=== PATIENT | male | born 1980 | race Caucasian/White ===

== ENCOUNTER 2021-11-23 14:02 | Emergency (ER) | payer MEDICAID ==
[~2021-11-23] VITALS: Ht 175.3 cm; Wt 108.2 kg
--- NOTE | 2021-11-23 15:36 | PHYS DOC ---
Past History Past Surgical History: Other Additional Past Surgical Histo: nasal surgery Alcohol Use: None Adult General Chief Complaint Chief Complaint: BACK PAIN OR INJURY HPI HPI Patient is a 41-year-old male presents to the emergency department complaining of a sciatica flareup that started yesterday when he woke up. Patient reports burning sensation that starts on the left side of his low back and radiates down through his buttocks to the upper part of the backside of his left leg. Patient denies any numbness or tingling down his extremities, denies injury to his back, denies recent injuries, reports this is atypical presentation of his sciatica flareups. Patient reports 10 out of 10 pain. Denies difficulty walking, does report it is difficult to stand from a seated position because of his back spasm, patient denies a history of IV drug use, immunosuppression, cancers, recent fever or chills, denies numbness or tingling to his buttocks or genitals, denies loss of bowel or bladder control, denies urinary retention. Patient denies other physical complaints or physical concerns. Review of Systems Review of Systems 14 body systems of review of systems have been reviewed. See HPI for pertinent positives and negative responses, otherwise all other systems are negative, nonpertinent or noncontributory. Constitutional: Negative except as outlined in HPI above. Skin: Negative except as outlined in HPI above. Eyes: Negative except as outlined in HPI above. HENT: Negative except as outlined in HPI above. Respiratory: Negative except as outlined in HPI above. Cardiovascular: Negative except as outlined in HPI above. GI: Negative except as outlined in HPI above. : Negative except as outlined in HPI above. Musculoskeletal: Negative except as outlined in HPI above. Integument: Negative except as outlined in HPI above. Neurologic: Negative except as outlined in HPI above. Endocrine: Negative except as outlined in HPI above. Lymphatic: Negative except as outlined in HPI above. Psychiatric: Negative except as outlined in HPI above. Physical Exam Physical Exam Constitutional: Well developed, well nourished, no acute distress, non-toxic appearance. 41-year-old male appears uncomfortable otherwise in no apparent distress. HENT: Normocephalic, atraumatic. Eyes: Conjunctiva normal, no discharge. Neck: Normal range of motion, no stridor. Cardiovascular: No cyanosis appreciated, distal cap refill less than 2 seconds. Lungs & Thorax: Patient is in no respiratory distress, no audible adventitious lung sounds appreciated. Abdomen: Nontender, no abnormalities noted. Skin: Warm, dry, no erythema, no rash. Back: No midline spinal tenderness, no ecchymosis or bruising appreciated, no swelling or crepitus appreciated, no left-sided or right-sided CVA TTP, pain to palpation along left lower lumbar muscular structures radiating to buttocks. Distal cap refill less than 2 seconds, intact 5/5 motor strength with hip flexion, knee flexion,extension, knee adduction, plantar/dorsiflexion at the ankle, and dorsiflexion of the toe bilaterally. Extremities: No tenderness, no cyanosis, no clubbing, ROM intact, no edema. Neurologic: Alert and oriented X 3, normal motor function, normal sensory function, no focal deficits noted. Psychologic: Affect normal, judgement normal, mood normal. Current Patient Data Vital Signs Vital Signs Date Time Temp Pulse Resp B/P (MAP) Pulse Ox O2 Delivery O2 Flow Rate FiO2 11/23/21 15:25 97.7 68 16 118/69 (85) 97 Room Air EKG EKG [] Radiology/Procedures Radiology/Procedures [] Heart Score C/O Chest Pain: No Risk Factors: Risk Factors: DM, Current or recent (<one month) smoker, HTN, HLP, family history of CAD, obesity. Risk Scores: Risk Factors: DM, Current or recent (<one month) smoker, HTN, HLP, family history of CAD, obesity. Course & Med Decision Making Course & Med Decision Making Pertinent Labs and Imaging studies reviewed. (See chart for details) 41-year-old male, vital signs reviewed, presents emerged from concerning sciatica flareup symptoms that started yesterday morning when he woke up. Physical examination is consistent with sciatica flareup. There is no saddle anesthesia, immunosuppression, cancer, fever or chills, history of IV drug use, bowel/bladder incontinence/retention, physical exam concerning signs or trauma that would necessitate emergent imaging. Discussed with patient will treat with IM steroid injection, pain medications, will prescribe medications for home, strict follow-up with primary care, return ER precautions and concerns were reviewed with patient, patient gave verbal understanding of and is amenable to ED discharge planning. Discussed with the patient all findings and diagnostic testing as well as the need to follow-up with their primary care provider for further evaluation and treatment or return to the ED if any new or worsening symptoms. Strict return precautions were also discussed at length, the patient voiced understanding and agreement with the discharge planning. The patient was nontoxic in appearance, in no apparent distress, and hemodynamically stable at the time of disposition. Dragon Disclaimer Dragon Disclaimer This electronic medical record was generated, in whole or in part, using a voice recognition dictation system. Departure Departure: Impression: Primary Impression: Low back pain Disposition: HOME / SELF CARE / HOMELESS Condition: GOOD Referrals: PCP,NO (PCP) Patient Instructions: Sciatica Additional Instructions: You are seen today in the emergency department for a sciatica flareup. You are treated today in the emergency department with pain medications and a intramuscular injection of steroid. I have prescribed a short regimen of steroids, and pain medications, please take as directed. He had indicated you have recently [place] here [place] of [place] and do not have a primary care provider, please consider using the [facility] located at [address] [place] [address] [place] [address], their telephone number is area code [phone]. Please call tomorrow for the soonest appointment for reevaluation and ongoing management of your healthcare needs. Thank you for visiting our Emergency Department. It was a pleasure taking care of you today in the emergency department and we appreciate you trusting us with your care. If any additional problems come up don't hesitate to return to visit us. Please follow up with your primary care provider so they can plan additional care if needed and know about the problem that you had. If symptoms worsen come back to the Emergency Department. Any concerning symptoms that start such as chest pain, shortness of air, weakness or numbness on one side of the body, running high fevers or any other concerning symptoms return to the ER. Scripts Ibuprofen (IBUPROFEN) 600 Mg Tablet 600 MG PO PRN Q6-8HRS PRN for PAIN, #30 TAB 0 Refills Prov: LISA MAX APRN 11/23/21 Prednisone (PREDNISONE) 20 Mg Tablet 2 TAB PO DAILY for allergies for 5 Days, #10 TAB 0 Refills Take 2 tablets by mouth daily for the next 5 days. Prov: LISA MAX APRN 11/23/21 Problem Qualifiers Primary Impression: Low back pain Chronicity: acute Back pain laterality: left Sciatica presence: with sciatica Sciatica laterality: sciatica of left side Qualified Codes: M54.42 - Lumbago with sciatica, left side LISA MAX APRN Nov 23, 2021 15:36
[2021-11-23] MEDS ORDERED: PRED20TA PO (16:17)
[2021-11-23] MEDS ORDERED: IBUP600T16 PO (16:17)
[2021-11-23] MEDS ORDERED: IBUPROFEN 600 MG TABLET. PO ONE (16:30)
[2021-11-23] MEDS ORDERED: HYDROcodone/APAP 5/325MG 1 TAB TABLET PO ONE (16:30)
[2021-11-23] MEDS ORDERED: methylPREDNISolone ACETATE 40 MG/ML VIAL. IM ONE (16:30)
[2021-11-23] MEDS ORDERED: HYDROcodone/APAP 5/325MG 1 TAB TABLET ONE (16:45)
[2021-11-23 17:05] VITALS: BP 114/70
== END 2021-11-23 17:07 | disposition home or self-care (01) ==
LOC: ER 14:02
DX: M54.42 Lumbago with sciatica, left side (principal)
CPT/HCPCS: 96372; 99283; J1030

== ENCOUNTER 2021-12-03 11:21 | Emergency (ER) | payer MEDICAID ==
[~2021-12-03] VITALS: Ht 157.5 cm; Wt 103.1 kg
[~2021-12-03 11:21] MED LIST: IBUP600T16 PO; PRED20TA PO
--- NOTE | 2021-12-03 12:06 | RAD ---
EXAM: CHEST 1 VIEW History: Cough, congestion COMPARISON: None available. TECHNIQUE: Single portable radiograph of the chest FINDINGS: The cardiac silhouette is unremarkable. The lungs are clear bilaterally. The costophrenic sulci are clear and well demarcated. IMPRESSION: No radiographic evidence of an acute cardiopulmonary process. Electronically signed by: Kristian Byrd MD (12/03/2021 12:04 PM) [id number]
[2021-12-03] MEDS ORDERED: ONDANSETRON PF 4 MG/2 ML VIAL. ONE (12:20)
[2021-12-03 13:04] LABS: INFLUENZA A PATIENT NEGATIVE (NEGATIVE); INFLUENZA B PATIENT NEGATIVE (NEGATIVE)
--- NOTE | 2021-12-03 13:50 | PHYS DOC ---
Past History Past Surgical History: Other Additional Past Surgical Histo: nasal surgery (LISA MAX APRN) Alcohol Use: None (LISA MAX APRN) Adult General Chief Complaint Chief Complaint: COUGH HPI HPI Patient is a 41-year-old male presents to the emergency department complaining of cough and congestion for the past week, productive yellow sputum thick amount. Denies fever or chills, reports receiving the COVID-19 virus vaccination series, has not received a flu vaccine. Patient states he is a daily cigarette smoker, smokes occasional marijuana, denies alcohol use, patient denies chest pains or shortness of breath, denies nasal congestion, denies sore throat or ear pain, denies fever or chills at home, denies dizziness, syncopal and or stable episodes, patient denies other physical complaints or physical concerns. (LISA MAX APRN) Review of Systems Review of Systems 14 body systems of review of systems have been reviewed. See HPI for pertinent positives and negative responses, otherwise all other systems are negative, nonpertinent or noncontributory. Constitutional: Negative except as outlined in HPI above. Skin: Negative except as outlined in HPI above. Eyes: Negative except as outlined in HPI above. HENT: Negative except as outlined in HPI above. Respiratory: Negative except as outlined in HPI above. Cardiovascular: Negative except as outlined in HPI above. GI: Negative except as outlined in HPI above. : Negative except as outlined in HPI above. Musculoskeletal: Negative except as outlined in HPI above. Integument: Negative except as outlined in HPI above. Neurologic: Negative except as outlined in HPI above. Endocrine: Negative except as outlined in HPI above. Lymphatic: Negative except as outlined in HPI above. Psychiatric: Negative except as outlined in HPI above. (LISA MAX APRN) Current Medications Current Medications Current Medications Medications (Trade) Dose Ordered Sig/Malaika Start Time Stop Time Status Last Admin Dose Admin Ondansetron HCl (Zofran) 4 mg STK-MED ONCE 12/03/21 12:20 12/03/21 12:20 DC (LISA MAX APRN) Allergies Allergies Allergies Coded Allergies Type Severity Reaction Last Updated Verified Penicillins Allergy Unknown 12/03/21 Yes amoxicillin Allergy Unknown 12/03/21 Yes clavulanic acid Allergy Unknown 12/03/21 Yes (LISA MAX APRN) Physical Exam Physical Exam Constitutional: Well developed, well nourished, no acute distress, non-toxic appearance. 41-year-old male in no apparent distress. HENT: Normocephalic, atraumatic. Oropharynx moist, pink, no deep tissue infection process appreciated, bilateral TMs within normal limits and intact. No lymphadenopathy of the head or neck appreciated. Eyes: Conjunctiva normal, no discharge. Neck: Normal range of motion, no stridor. Cardiovascular: No cyanosis appreciated, distal cap refill less than 2 seconds. Heart sounds S1-S2, regular rate and rhythm. Lungs & Thorax: Patient is in no respiratory distress, no audible adventitious lung sounds appreciated. Lung sounds clear to auscultation all lung murillo, normal work of breathing. Abdomen: Nontender, no abnormalities noted. Skin: Warm, dry, no erythema, no rash. Back: No tenderness, no deformities. Extremities: No tenderness, no cyanosis, no clubbing, ROM intact, no edema. Neurologic: Alert and oriented X 3, normal motor function, normal sensory function, no focal deficits noted. Psychologic: Affect normal, judgement normal, mood normal. (LISA MAX APRN) Current Patient Data Vital Signs Vital Signs Date Time Temp Pulse Resp B/P (MAP) Pulse Ox O2 Delivery O2 Flow Rate FiO2 12/03/21 11:31 98.4 85 16 112/76 (88) 98 Room Air Lab Results Laboratory Tests Test 12/03/21 12:06 Influenza Type A (Rapid) Negative (NEGATIVE) Influenza Type B (Rapid) Negative (NEGATIVE) SARS-CoV-2 Antigen (Rapid) Negative (NEGATIVE) (LISA MAX APRN) EKG EKG [] (LISA MAX APRN) Radiology/Procedures Radiology/Procedures REASON: Cough, congestion PROCEDURE: CHEST AP ONLY EXAM: CHEST 1 VIEW History: Cough, congestion COMPARISON: None available. TECHNIQUE: Single portable radiograph of the chest FINDINGS: The cardiac silhouette is unremarkable. The lungs are clear bilaterally. The costophrenic sulci are clear and well demarcated. IMPRESSION: No radiographic evidence of an acute cardiopulmonary process. Electronically signed by: Kristian Byrd MD (12/03/2021 12:04 PM) [id number] (LISA MAX APRN) Heart Score C/O Chest Pain: No Risk Factors: Risk Factors: DM, Current or recent (<one month) smoker, HTN, HLP, family history of CAD, obesity. Risk Scores: Risk Factors: DM, Current or recent (<one month) smoker, HTN, HLP, family history of CAD, obesity. (LISA MAX APRN) Course & Med Decision Making Course & Med Decision Making Pertinent Labs and Imaging studies reviewed. (See chart for details) 41-year-old male, vital signs reviewed, presents to the emergency department concerning cough and congestion for the past week. Physical examination consistent with bronchitis, patient is a daily cigarette smoker, discussed with patient smoking cessation, will order chest x-ray, COVID-19/rapid flu testing, will give oral Zofran for reported nausea with coughing. Patient chest x-ray unremarkable, rapid flu and Covid testing negative, discussed with patient smoking cessation, discussed with patient bronchitis, patient reports he does not have his albuterol MDI inhaler or Claritin, patient does reveal symptoms are worse at night, discussed with patient will order these 2 medications, take as directed, strict follow-up with primary care, return ER precautions and concerns were reviewed, patient gave verbal understanding of and is amenable to ED discharge planning. Patient did not have any coughing episodes or nausea episodes during ER stay. Patient's vitals have remained stable during ER stay. Discussed with the patient all findings and diagnostic testing as well as the need to follow-up with their primary care provider for further evaluation and treatment or return to the ED if any new or worsening symptoms. Strict return precautions were also discussed at length, the patient voiced understanding and agreement with the discharge planning. The patient was nontoxic in appearance, in no apparent distress, and hemodynamically stable at the time of disposition. (LISA MAX APRN) Dragon Disclaimer Dragon Disclaimer This electronic medical record was generated, in whole or in part, using a voice recognition dictation system. (LISA MAX APRN) Attending Co-Sign The patient was seen and interviewed as well as examined at the bedside. The chart was reviewed. The case was discussed. Agree with the plan of care. (LYNDSEY SPEAR DO) Departure Departure: Impression: Primary Impression: Upper respiratory infection with cough and congestion Additional Impression: Cigarette smoker Disposition: 01 HOME / SELF CARE / HOMELESS Condition: GOOD Referrals: PCP,NO (PCP) Patient Instructions: Bronchitis Additional Instructions: You were seen today in the emergency department for cough and congestion for the past week. Your chest x-ray did not show any concerning findings of pneumonia. Your rapid flu and Covid test were negative. As we discussed I will prescribe your albuterol MDI medication and Claritin, please take your Claritin in the evening time prior to going to bed. Follow-up with your primary care provider this week for ongoing symptoms, if you are unable to follow-up with your own primary doctor, please consider using the [facility] located [address] [place] [address] [address] [place] [address] their telephone number is area code [phone]. Thank you for visiting our Emergency Department. It was a pleasure taking care of you today in the emergency department and we appreciate you trusting us with your care. If any additional problems come up don't hesitate to return to visit us. Please follow up with your primary care provider so they can plan additional care if needed and know about the problem that you had. If symptoms worsen come back to the Emergency Department. Any concerning symptoms that start such as chest pain, shortness of air, weakness or numbness on one side of the body, running high fevers or any other concerning symptoms return to the ER. EMERGENCY DEPARTMENT GENERAL DISCHARGE INSTRUCTIONS Thank you for coming to [facility] (ED) today and trusting us with you care. We trust that you had a positivie experience in our Emergency Department. If you wish to speak to the department management, you may call the director at [phone]. YOUR FOLLOW UP INSTRUCTIONS ARE FOLLOWS: 1. Do you have a private Doctor? If you do not have a private doctor, please ask for a resource list of physicians or clinics that may be able to assist you with f ollow up care. 2. The Emergency Physician has interpreted your x-rays. The X-Ray specialist will also review them. If there is a change in the findings, you will be notified in 48 hours when at all possible. 3. A lab test or culture has been done, your results will be reviewed and you will be notified if you need a change in treatment. ADDITIONAL INSTRUCTIONS AND INFORMATION: 1. Your care today has been supervised by a physician who is specially trained in emergency care. Many problems require more than one evaluation for a complete diagnosis and treatment. We recommend that you schedule your follow up appointment as recommended to ensure complete treatment of you illness or injury. If you are unable to obtain follow up care and continue to have a problem, or if your condition worsens, we recommend that you return to the ED. 2. We are not able to safely determine your condition over the phone nor are we able to give sound medical advice over the phone. For these safety reasons, if you call for medical advice we will ask you to come to the ED for further evaluation. 3. If you have any questions regarding these discharge instructions please call the ED at [phone]. SAFETY INFORMATION: In the interest of safety, wellness, and injury prevention; we encourage you to wear your sealbelt, if you smoke; quite smoking, and we encourage family to use a protect kashmir helmet for bicycling and other sporting events that present an increased risk for head injury. IF YOUR SYMPTOMS WORSEN OR NEW SYMPTOMS DEVELOP, OR YOU HAVE CONCERNS ABOUT YOUR CONDITION; OR IF YOUR CONDITION WORSENS WHILE YOU ARE WAITING FOR YOUR FOLLOW UP APPOINTMENT; EITHER CONTACT YOUR PRIMARY CARE DOCTOR, THE PHYSICIAN WHOSE NAME AND NUMBER YOU WERE GIVEN, OR RETURN TO THE ED IMMEDIATELY. Scripts Loratadine (CLARITIN) 10 Mg Capsule 1 CAP PO DAILY for allergy symptoms for 30 Days, #30 CAP 0 Refills Take 1 tablet daily in the evening before bedtime. Prov: LISA MAX APRN 12/03/21 Albuterol Sulfate (PROAIR HFA INHALER) 8.5 Gm Hfa.aer.ad 2 PUFF IH PRN Q4-6HRS PRN for wheezing for 21 Days, #1 INHALER 0 Refills Prov: LISA MAX APRN 12/03/21 Problem Qualifiers LISA MAX APRN Dec 03, 2021 13:50 LYNDSEY SPEAR DO Dec 03, 2021 16:44
[2021-12-03] MEDS ORDERED: ALBU2.5V8 IH (13:55)
[2021-12-03] MEDS ORDERED: LORA10CA PO (13:55)
[2021-12-03 14:04] VITALS: BP 118/95
== END 2021-12-03 14:03 | disposition home or self-care (01) ==
LOC: ER 11:21
DX: J06.9 Acute upper respiratory infection, unspecified (principal); F17.210 Nicotine dependence, cigarettes, uncomplicated; Z20.822 Contact with and (suspected) exposure to COVID-19; Z88.0 Allergy status to penicillin; Z88.1 Allergy status to other antibiotic agents
CPT/HCPCS: 71045; 87428; 99284